=== PATIENT | male | born 1950 | race Two or more races ===

== ENCOUNTER 2019-05-26 12:49 | Emergency (ER) | payer SELFPAY ==
[~2019-05-26] VITALS: Ht 180.3 cm; Wt 80.0 kg
[~2019-05-26 12:49] MED LIST: NO MEDS
[2019-05-26 13:45] LABS: BASOPHILS % 0.8 % (0.0-2.0); EOSINOPHILS % 0.1 % (0.0-5.0); HEMATOCRIT. 40.2 % (42.0-52.0); HEMOGLOBIN. 13.2 g/dL (14.0-18.0); LYMPHOCYTES % 37.1 % (20.0-50.0); MEAN CORPUSCULAR HEMOGLOBIN 27.9 pg (28.0-32.0); MEAN CORPUSCULAR VOLUME 84.9 fL (80.0-94.0); MEAN PLATELET VOLUME 10.1 fl (7.4-10.4); MONOCYTES % 11.7 % (2.0-8.0); NEUTROPHILS % 50.3 % (40.0-76.0); PLATELET 130 x1000/uL (130-400); RED BLOOD CELL COUNT 4.73 mill/uL (4.7-6.1); RED CELL DISTRIBUTION WIDTH 12.7 % (11.6-14.6)
[2019-05-26 13:53] LABS: CHLORIDE 99 mEq/L (98-107)
[2019-05-26 16:52] VITALS: BP 118/69
== END 2019-05-26 17:07 | disposition home or self-care (01) ==
LOC: ER 12:49
DX: R07.9 Chest pain, unspecified (principal); E11.9 Type 2 diabetes mellitus without complications
CPT/HCPCS: 36415; 71045; 83880; 84484; 93005; 99284